=== PATIENT | female | born 1960 | race Caucasian/White ===

== ENCOUNTER 2022-04-12 21:09 | Emergency (ER) | payer OTHER, SELFPAY ==
[2022-04-12 21:12] VITALS: BP 144/84; PULSE 70; RESP 18; TEMP 36.4; BMI 38.6
--- NOTE | 2022-04-12 21:32 | ED_ITS ---
HPI - Abdominal Pain General Chief Complaint: Abdominal Pain Stated Complaint: LEFT SIDE ABDOMINAL PAIN Time Seen by Provider: 04/12/22 21:27 Source: patient, family and RN notes reviewed Mode of arrival: ambulatory Limitations: no limitations History of Present Illness HPI narrative: 61-year-old woman presenting to the emergency department with left lower abdominal pain beginning yesterday evening. She has had generally yesterday was not feeling very well with the Lord appetite. She has not had any fever. She describes this pain as a pressure and stabbing at times. This is a well-known pain ?it's my diverticulitis?. Does have a well-documented history of this. Has never had abscess or required surgical intervention for it. She believes had initial flare of this 2 weeks ago. Called to the clinic and was told that they do not prescribe antibiotics for it anymore she says and initiated a clear liquid diet. She felt better but now the pain has returned. I last treated Ms. Vogt in October of this year. No imaging was done at that time. She did improve on ciprofloxacin and metronidazole as per her usual. Had been tried earlier in that course on Bactrim and vomited it up but this may have been due to taking it on an empty stomach she thinks. She is not feeling nauseated now; she has not been vomiting. Had a normal bowel movement this morning. Has not had any hematochezia. No dysuria or frequency noted. No hematuria noted. Related Data Home Medications Medication Instructions Recorded Confirmed aspirin DAILY 04/12/22 celecoxib 200 mg capsule mg 04/12/22 cholecalciferol (vitamin D3) 125 04/12/22 mcg (5,000 unit) tablet (Vitamin D3) lisinopril 30 mg tablet mg 04/12/22 pregabalin 75 mg capsule mg 04/12/22 simvastatin 10 mg tablet mg 04/12/22 Previous Rx's Medication Instructions Recorded ciprofloxacin HCl 500 mg tablet 500 mg PO BID #24 tabs 04/12/22 metronidazole 500 mg tablet 500 mg PO Q8H #36 tabs 04/12/22 Allergies Allergy/AdvReac Type Severity Reaction Status Date / Time amoxicillin Allergy Rash Verified 04/12/22 21:16 Review of Systems Status of ROS Reports: 6 or more systems reviewed and unremarkable except as noted in History and below PFSH PFSH Social History Smoking Status: Never smoker How often do you have a drink containing alcohol: never AUDIT-C Alcohol total score: 0 Non-prescribed substance use: denies use Exam Narrative: Exam Narrative: A pleasant. NAD. Easily conversant. Breathing easily. Is a little sore with transitions. Skin is warm and dry without apparent rash. Moving all extremities without difficulty. Well perfused peripherally. Abdomen with normoactive bowel sounds is overweight soft and moderately tender without peritoneal signs to palpation in the left lower abdomen. No flank pain. Cardiovascular with regular rate and rhythm. Const: Vital Signs, click to edit/add: Vital Signs - 24 hr 04/12/22 21:12 Temperature 97.6 F Pulse Rate [Left P ulse Oximeter] 70 Respiratory Rate 18 Blood Pressure [Ri ght Forearm] 144/84 H Oxygen Delivery Me thod Room Air Documenting provider has reviewed patient's vital signs: yes Course Course Hospital Course: Did offer medications for nausea and pain here in the emergency department. Initiated also on antibiotics. Vital Signs Vital signs: Initial Vital Signs Temperature 97.6 F 04/12/22 21:12 Temperature Source Temporal Artery Scan 04/12/22 21:12 Pulse Rate 70 04/12/22 21:12 Respiratory Rate 18 04/12/22 21:12 Blood Pressure 144/84 H 04/12/22 21:12 Blood Pressure Mean 104 04/12/22 21:12 Blood Pressure Position Sitting 04/12/22 21:12 Oxygen Delivery Method 04/12/22 21:12 Vital Signs Temperature 97.6 F 04/12/22 21:12 Pulse Rate 70 04/12/22 21:12 Respiratory Rate 18 04/12/22 21:12 Blood Pressure 144/84 H 04/12/22 21:12 Oxygen Delivery Method 04/12/22 21:12 Temperature 97.6 F 04/12/22 21:12 Pulse Rate 70 04/12/22 21:12 Respiratory Rate 18 04/12/22 21:12 Blood Pressure 144/84 H 04/12/22 21:12 Oxygen Delivery Method 04/12/22 21:12 MDM - Abdominal Pain MDM Narrative Medical decision making narrative: History of diverticulitis in similar area of discomfort. Generally uncomplicated diverticulitis. Seems to be failing conservative measures at this point. Normal vitals. I do not think further investigation is necessary at this time. Initiated antibiotics. See discharge Medical Records Attestation: I reviewed the patient's medical records. Discharge Plan Discharge Clinical Impression: Diverticulitis, Abdominal pain Patient Disposition: Home w/ Parent or Adult Condition: Stable Additional Instructions: Do go back on a liquid/clear liquid diet over the next 48-72 hours. Return for uncontrolled pain, repeated vomiting, fever. 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 Might want to schedule a follow-up appointment with your primary care provider to discuss next steps in management or ways to treat as an outpatient on your own. This may or may not include antibiotics in hand after a couple of days of dietary management for flares. Might want to have a visit with General surgery as well to see what next steps might be for you if indicated Prescriptions: New ciprofloxacin HCl 500 mg tablet 500 mg PO BID Qty: 24 0RF metronidazole 500 mg tablet 500 mg PO Q8H Qty: 36 0RF No Action celecoxib 200 mg capsule simvastatin 10 mg tablet lisinopril 30 mg tablet pregabalin 75 mg capsule cholecalciferol (vitamin D3) [Vitamin D3] 125 mcg (5,000 unit) tablet Label Comments: TAKE 1 TABLET BY MOUTH DAILY aspirin DAILY Follow Up/Referrals: Maria Eugenia Tiwari DO [Primary Care Provider] - Stand Alone Forms: [employer] Info Instructions
[2022-04-12] MEDS: OxyCODONE/APAP 5-325 TABLET 2 TAB PO (22:04)
[2022-04-12] MEDS: metroNIDAZOLE 500 MG TABLET PO (22:04)
[2022-04-12] MEDS: CIPROFLOXACIN 500 MG TABLET PO (22:05)
[2022-04-12] MEDS: ONDANSETRON ODT 4 MG TAB PO (22:05)
== END 2022-04-12 22:11 | disposition home or self-care (01) ==
LOC: ED 21:57
PROVIDERS: Emergency Provider Family Medicine; PCP Family Medicine
DX: K57.92 Diverticulitis of intestine, part unspecified, without perforation or abscess without bleeding (principal)
CPT/HCPCS: 99283; 99284; A9270

== ENCOUNTER 2023-05-29 16:54 | Emergency (ER) | payer OTHER, SELFPAY ==
[2023-05-29 17:08] VITALS: BP 127/77; PULSE 67; RESP 16; TEMP 36.6; O2SAT 97; BMI 36.6
--- NOTE | 2023-05-29 20:38 | ED.GENADULT ---
HPI - General Adult General Date Seen: 05/29/23 Chief complaint: Extremity Pain/Injury, Lower Stated complaint: L leg rash Time Seen by Provider: 05/29/23 17:15 History of Present Illness HPI narrative: This is a very pleasant 62-year-old female who has a past medical history of diverticulitis, previous cellulitis requiring hospitalization, otherwise generally healthy. No diabetes or long-term immune system problems. She presents to the ER today from home with her . She has developed a red, painful, red lesion on the anterior surface of her left distal beckman. She does not have any recent trauma, bug bite, injury. She does recall that she has had a distant history of previous cellulitis caused by a small cut to her leg from shaving. No definite recent shaving cuts. She noticed a little red bump yesterday. Today it is spread and it is more painful. It is also little bit itchy. It is now roughly 4 x 5 in in size. It is on the anterior beckman. No pain or swelling or redness in the back of her calf. No other swelling in her leg. No pain in her ankle. No pain to her knee. No ascending lymphangitis. She is not febrile. No body aches. No other constitutional symptoms of infection. No shortness of breath. No recent travel or immobilization. No history of DVT/PE. She is not anticoagulated. Related Data Home Medications Medication Instructions Recorded Confirmed aspirin DAILY 04/12/22 celecoxib 200 mg capsule mg 04/12/22 cholecalciferol (vitamin D3) 125 04/12/22 mcg (5,000 unit) tablet (Vitamin D3) lisinopril 30 mg tablet mg 04/12/22 pregabalin 75 mg capsule mg 04/12/22 simvastatin 10 mg tablet mg 04/12/22 Previous Rx's Medication Instructions Recorded ciprofloxacin HCl 500 mg tablet 500 mg PO BID #24 tabs 04/12/22 metronidazole 500 mg tablet 500 mg PO Q8H #36 tabs 04/12/22 cephalexin 500 mg capsule 500 mg PO QID 7 days #28 caps 05/29/23 Allergies Allergy/AdvReac Type Severity Reaction Status Date / Time Latex, Natural Rubber Allergy Mild Rash Verified 05/29/23 17:05 amoxicillin Allergy Rash Verified 04/12/22 21:16 PFSH PFS Social History Smoking Status: Never smoker How often do you have a drink containing alcohol: never AUDIT-C Alcohol total score: 0 Non-prescribed substance use: denies use Exam Narrative: Exam Narrative: Constitutional: Appears well-developed and well-nourished. Alert. Conversant. Non toxic. HENT: Head: Atraumatic. Nose: Nose normal. Mouth/Throat: Oral mucosa is clear and moist. no trismus. Pharynx normal. Tonsils symmetric. No tonsillar enlargement, erythema, or exudate. Eyes: Conjunctivae normal. EOM normal. Pupils equal, round, and reactive to light. No scleral icterus. Neck: Normal range of motion. Neck supple. No tracheal deviation present. Cardiovascular: Normal rate, regular rhythm. No gallop. No friction rub. No murmur heard. Symmetric dorsalis pedis and posterior tibial artery pulses Pulmonary/Chest: Effort normal. No stridor. No respiratory distress. No wheezes. No rales. No rhonchi . Musculoskeletal: RUE: Normal range of motion. No tenderness. No deformity LUE: Normal range of motion. No tenderness. No deformity RLE: Normal range of motion. No edema. No tenderness. No deformity LLE: Normal range of motion. No edema. No tenderness. No deformity Lymph: No cervical adenopathy. Neurological: Alert and oriented to person, place, and time. Normal strength. CN II-VII intact. No sensory deficit. GCS eye subscore is 4. GCS verbal subscore is 5. GCS motor subscore is 6. Normal coordination Skin: She has a 5 x 7 cm near circular but oval shaped area of erythema, warmth, and mild tenderness on her distal portion of her left anterior beckman. It is approximately 3[address] from her knee to her ankle. No associated redness or swelling of the ankle joint itself. There is no palpable fluctuance, crepitus. No palpable foreign body. No raised border to suggest ringworm. No central clearing suggest erythema migrans. No ascending lymphangitis. Otherwise, Skin is warm and dry. No rash noted. No pallor. Normal capillary refill. Psychiatric: Normal mood. Normal affect. Const: Vital Signs, click to edit/add: Vital Signs - 24 hr 05/29/23 17:08 Temperature 97.9 F Pulse Rate [Right Pulse Oximeter] 67 Respiratory Rate 16 Blood Pressure [Ri ght Upper Arm] 127/77 Pulse Oximetry 97 Oxygen Delivery Me thod Room Air Course Vital Signs Vital signs: Initial Vital Signs Temperature 97.9 F 05/29/23 17:08 Temperature Source Temporal Artery Scan 05/29/23 17:08 Pulse Rate 67 05/29/23 17:08 Pulse Rhythm Regular 05/29/23 17:08 Respiratory Rate 16 05/29/23 17:08 Blood Pressure 127/77 05/29/23 17:08 Blood Pressure Mean 93 05/29/23 17:08 Blood Pressure Position Sitting 05/29/23 17:08 Pulse Oximetry 97 05/29/23 17:08 Oxygen Delivery Method Room Air 05/29/23 17:08 Vital Signs Temperature 97.9 F 05/29/23 17:08 Pulse Rate 67 05/29/23 17:08 Respiratory Rate 16 05/29/23 17:08 Blood Pressure 127/77 05/29/23 17:08 Pulse Oximetry 97 05/29/23 17:08 Oxygen Delivery Method Room Air 05/29/23 17:08 Temperature 97.9 F 05/29/23 17:08 Pulse Rate 67 05/29/23 17:08 Respiratory Rate 16 05/29/23 17:08 Blood Pressure 127/77 05/29/23 17:08 Pulse Oximetry 97 05/29/23 17:08 Oxygen Delivery Method Room Air 05/29/23 17:08 Medical Decision Making MDM Narrative Medical decision making narrative: This patient presents for evaluation of a well circumcised oval-shaped area skin redness on her left anterior distal beckman. The history, physical exam is consistent with cellulitis. There do not appear at this time to be any complication of cellulitis including abscess, necrotizing fascitis, lymphangitis, lymphadenitis, osteomyelitis, sepsis, or shock. Differential would include DVT. However she does not really have any diffuse redness or swelling or ecchymosis or other signs of DVT in her posterior calf or leg. Patient had surgeon on the Internet and was concerned about DVT. We discussed that with his presentation of a clearly well-circumscribed rest this is much more consistent with cellulitis and not suggestive of DVT. I offered to perform a DVT ultrasound, since it is does not involve ionizing radiation would not be invasive harmful to the patient. However my recommendation would be to hold off for now since this is not sales representative health insurance DVT. She agrees. Will monitor carefully and if she does this have more diffuse redness or swelling, she will return to the ER immediately for re-evaluation. She does have 1 previous hospitalization for a more widespread cellulitis, years ago. However at this point I think she is safe for outpatient management. The patient is not immunosuppressed or diabetic. Supportive outpatient management is indicated with antibiotics. The patient is instructed to follow-up with primary care physician to ensure no progression and rapid resolution and given precautions to return if high fever, spread greater than 2cm outside of the current area, worsening pain, vomiting or any other worsening. Questions answered and return precautions reviewed. Prescription for cephalexin 500 mg q.i.d. for 7 days. Return precautions reviewed. Discharge Plan Discharge Clinical Impression: Cellulitis Patient Disposition: Home, Self-Care Condition: Stable Instructions: Cellulitis (ED) Additional Instructions: As we discussed, please start on the antibiotics today. Monitor the red, painful area carefully. If he notice spreading redness more than 1 in beyond its current location or if you have streaks of red moving up your leg, developed high fevers, body aches, or other concerns, please come back to the ER or see her doctor right away. If you notice more diffuse swelling or pain throughout your lower leg, come back to the ER to get an ultrasound. Typically it takes 1-2 days of antibiotics before and infection will start to show signs of improvement. Try to keep her foot elevated and rest for the next day or two Prescriptions: New cephalexin 500 mg capsule 500 mg PO QID 7 Days Qty: 28 0RF No Action celecoxib 200 mg capsule simvastatin 10 mg tablet lisinopril 30 mg tablet pregabalin 75 mg capsule cholecalciferol (vitamin D3) [Vitamin D3] 125 mcg (5,000 unit) tablet Patient Comments: TAKE 1 TABLET BY MOUTH DAILY aspirin DAILY ciprofloxacin HCl 500 mg tablet 500 mg PO BID Qty: 24 0RF metronidazole 500 mg tablet 500 mg PO Q8H Qty: 36 0RF Follow Up/Referrals: Maria Eugenia Tiwari DO [Primary Care Provider] - Stand Alone Forms: [employer] Info Instructions
== END 2023-05-29 18:02 | disposition home or self-care (01) ==
LOC: ED 17:59
PROVIDERS: Emergency Provider Emergency Medicine; PCP Family Medicine
DX: L03.116 Cellulitis of left lower limb (principal)
CPT/HCPCS: 99283